=== PATIENT | female | born 1970 | race Two or more races ===

== ENCOUNTER 2020-05-05 11:08 | Outpatient (CLI) | payer OTHER | END 2020-05-05 11:26 | disposition home or self-care (01) | LOC: MRI 11:08 | PROVIDERS: ATTEND Orthopaedic Surgery | DX: M71.21 Synovial cyst of popliteal space [Baker], right knee (principal); M22.41 Chondromalacia patellae, right knee; M25.561 Pain in right knee | CPT/HCPCS: 73721 ==